=== PATIENT | male | born 1955 | race Caucasian/White ===

== ENCOUNTER → 2018-09-27 | Outpatient (CLI) | payer MEDICARE ==
[~2018-09-27] MED LIST: PERFLUTREN PROTEIN-A MICROSPHR 0.22 MG/ML 3 ML VIAL. IV ONE; REGADENOSON 0.4 MG/5 ML DISP.SYRIN. IV ONE
--- NOTE | 2018-09-30 11:08 | PCVCIMAG ---
APPROVED REPORT Study performed: 09/27/2018 08:07:57 EXAM: Comprehensive 2D, Doppler, and color-flow Echocardiogram with contrast Patient Location: Echo lab Room #: 2Status: routine BSA: 2.22 HR: 77 bpmBP: 108/74 mmHg Rhythm: NSR Other Information Study Quality: Fair Risk Factors: Cardiac Risk Factors: HTN, Hyperlipidemia, DM, obesity Indications Diabetes CAD Cardiomyopathy Hypertension/HDD S/P CABG 2D Dimensions IVSd: 14.29 (7-11mm)LVOT Diam: 24.71 (18-24mm) LVDd: 49.64 mm PWd: 10.17 (7-11mm)Ascending Ao: 40.62 (22-36mm) LVDs: 37.98 (25-40mm) Left Atrium: 31.61 (27-40mm) Aortic Root: 31.27 mm LV Single Plane 4CH: 58.00 % LV Single Plane 2CH: 33.00 % Biplane EF: 47.0 % Volumes Left Atrial Volume (Systole) Single Plane 4CH: 32.56 mLSingle Plane 2CH: 15.39 mL Biplane LA Volume: 25.00 mLLA ESV Index: 12.00 mL/m2 Aortic Valve AoV Peak Philippe.: 1.07 m/s AO Peak Gr.: 4.55 mmHgLVOT Max P.61 mmHg LVOT Max V: 0.63 m/s BUBBA Vmax: 2.85 cm2 Mitral Valve E/A Ratio: 0.6 MV Decel. Time: 177.04 ms MV E Max Philippe.: 0.47 m/s MV A Philippe.: 0.77 m/s IVRT: 89.97 ms TDI E/Lateral E': 11.75E/Medial E': 9.40 Medial E' Philippe.: 0.05 m/s Lateral E' Philippe.: 0.04 m/s Pulmonary Valve PV Peak Philippe.: 0.60 m/sPV Peak Gr.: 1.45 mmHg Pulmonary Vein P Vein S: 0.40 m/s P Vein D: 0.33 m/s P Vein S/D Ratio: 1.21 Tricuspid Valve TV Vmax: 0.45 m/s Left Ventricle The left ventricle is normal size. Paradoxical septal motion consistent with post-operative state. Mild septal hypertrophy is present. Left ventricular systolic function is mildly decreased. LVEF is 45%. Mild diastolic dysfunction is present (impaired relaxation pattern). Right Ventricle The right ventricle is normal size. The right ventricular systolic function is normal. Atria The left atrium size is normal. Right atrium is not well visualized but appears normal. Aortic Valve Aortic valve is not well visualized. Aortic valve is probably trileaflet with mild sclerotic changes. No aortic regurgitation is present. There is no aortic valvular stenosis. Mitral Valve The mitral valve is normal in structure. Trace mitral regurgitation. No evidence of mitral valve stenosis. Tricuspid Valve The tricuspid valve is normal in structure. There is no tricuspid valve regurgitation noted. Pulmonic Valve The pulmonary valve is normal in structure. There is no pulmonic valvular regurgitation. Great Vessels The aortic root is normal in size. Aortic arch is not well visualized. Ascending aorta is mildly dilated (4.1cm) IVC is not well visualized. Pericardium There is no pericardial effusion. There is no pleural effusion. <Conclusion> Technically difficult study Left ventricular systolic function is mildly decreased. Paradoxical septal motion consistent with post-operative state. LVEF is 45%. Mild diastolic dysfunction. Aortic valve is not well visualized. Aortic valve is probably trileaflet with mild sclerotic changes. No aortic regurgitation or stenosis The mitral valve is normal in structure. Trace mitral regurgitation. Ascending aorta is mildly dilated (4.1cm) There is no pericardial effusion.
--- NOTE | 2018-09-30 11:29 | PCVCIMAG ---
APPROVED REPORT Imaging Protocol: Rest Tc-99m/Stress Tc-99m 1 day Study performed: 09/27/2018 09:20:19 Indication: CAD, Known L Main 60-70% Patient Location: Out-Patient Stress Nurse: Tricia Mcdowell RN, Alexandrea Pantoja RN NH Tech:Noah GERI Vela Ht: 5 ft 7 in Wt: 250 lbs BSA: 2.22 m2 HR: 77 bpm BP: 132/81 mmHg BMI: 39.1 Rhythm: Sinus Rhythm, First Degree AV Block, Incomplete RBBB Medical History Medical History: Age, Hyperlipidemia, Obesity, CAD, NH, DM Non Insulin, Former Smoker Medications: ASA, Atorvastatin, Carvedilol, Glyburide, Metformin, Synthroid, Singulair, Protonix, Effient, Aldactone, Zetia, Jardiance Allergies: Hydrocodone Previous Cardiac Procedures: CABG, PCI, NH Pretest Chest Pain Characteristics: No chest pain Exercise History: Sedentary Physical Disabilities: Back Meds Held (24 hrs): Carvedilol Resting Data Rest SPECT myocardial perfusion imaging was performed in supine position 45 minutes following the intravenous injection of 16 mCi of Tc-99m Sestamibi. Time of rest injection: 0900 Date: 09/27/2018 Administration Route: IV Administration Site: Right AC Pharmacologic Stress Pharmacologic stress test was performed by injecting Regadenoson 0.4 mg IV push over 10-15 seconds immediately followed by the intravenous injection of 45 mCi of Tc-99m Sestamibi. Time of stress injection: 1010 Date: 09/27/2018 Administration Route: IV Administration Site: Right AC Gated Stress SPECT was performed 45 minutes after stress injection. The images were gated to evaluate regional wall motion and calculate left ventricular ejection fraction. Stress Test Details Stress Test: Pharmacologic stress testing performed using 0.4 mg of regadenoson per 5 mL given IV over 10 seconds. Reason for pharmacologic stress test: Back pain. HRMax Heart Rate (APMHR): 156 bpm Resting HR: 77 bpmTarget HR (85% APMHR): 132 bpm Max HR Achieved: 94 bpm % of APMHR: 60 Recovery HR: 88 bpm BP Resting BP: 132/81 mmHg Max BP: 135/84 mmHg Recovery BP: 131/82 mmHg ECG Resting ECG: Sinus Rhythm, 1st degree AV block, Incomplete RBBB Stress ECG: Sinus Rhythm, 1st degree AV block, Incomplete RBBB ST Change: None Maximum ST Deviation: 0 mm Arrhythmia: None Recovery ECG: Sinus Rhythm, 1st degree AV block, Incomplete RBBB Recovery ST Change: None Recovery ST Deviation: 0 mm Recovery Arrhythmia: None Clinical Reason for Termination: Completed protocol Stress Symptoms: Dyspnea, Chest Pressure, Headache Exercise duration: min 55 sec Symptoms resolved with caffeine. Stress ECG Conclusion ECG: Non-ischemic Clinical: Non-ischemic Study Quality Study: Good Study Data Post stress, the left ventricular ejection was 56%.. SSS: 9 SRS: 12 SDS: 1 TID = 1.27. Perfusion No evidence of stress induced ischemia. 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 No visual post stress chamber dilatation. Nuclear Conclusion No evidence of stress induced ischemia. 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 Post stress, the left ventricular ejection was 56%. No prior study available for comparison. Interpreted by: Arvin Escoto MD Electronically Approved: 09/27/2018 14:43:20 <Conclusion> ECG: Non-ischemic Clinical: Non-ischemic
== END | disposition home or self-care (01) ==
LOC: PCVCIMAG 08:26
PROVIDERS: ATTEND Internal Medicine Cardiovascular Disease
DX: I25.10 Atherosclerotic heart disease of native coronary artery without angina pectoris (principal); I10 Essential (primary) hypertension; E11.9 Type 2 diabetes mellitus without complications; I42.9 Cardiomyopathy, unspecified; E78.5 Hyperlipidemia, unspecified; Z95.1 Presence of aortocoronary bypass graft; Z79.4 Long term (current) use of insulin; Z87.891 Personal history of nicotine dependence
CPT/HCPCS: 78452; 93017; A9500; C8929; J2785; Q9956

== ENCOUNTER → 2019-03-20 | Outpatient (CLI) | payer MEDICARE | END | disposition home or self-care (01) | LOC: PCVCCLINIC 13:40 | PROVIDERS: ATTEND Internal Medicine Cardiovascular Disease | DX: I25.10 Atherosclerotic heart disease of native coronary artery without angina pectoris (principal); I25.5 Ischemic cardiomyopathy; I45.10 Unspecified right bundle-branch block; I10 Essential (primary) hypertension; E78.00 Pure hypercholesterolemia, unspecified; G47.30 Sleep apnea, unspecified; E11.9 Type 2 diabetes mellitus without complications; E66.9 Obesity, unspecified; Z95.1 Presence of aortocoronary bypass graft; Z79.4 Long term (current) use of insulin; Z79.82 Long term (current) use of aspirin; Z79.899 Other long term (current) drug therapy; Z87.891 Personal history of nicotine dependence; Z88.8 Allergy status to other drugs, medicaments and biological substances; Z72.89 Other problems related to lifestyle | CPT/HCPCS: 36415; 80061; 93005; G0463 ==